=== PATIENT | male | born 1990 | race African-American/Black ===

== ENCOUNTER 2023-10-17 08:28 | Emergency (ER) | payer MEDICAID, OTHER ==
[~2023-10-17] VITALS: Ht 167.6 cm; Wt 75.0 kg
[~2023-10-17 08:28] MED LIST: ZOLOFT
[2023-10-17 08:32] VITALS: BP 128/83; PULSE 76; RESP 18; TEMP 98.2
[2023-10-17] MEDS: IBUPROFEN 600 MG TABLET PO ONE ×2 (10:19→10:20)
[2023-10-17] MEDS ORDERED: IBUP-1492 PO (10:57)
== END 2023-10-17 11:31 | disposition home or self-care (01) ==
LOC: EMS 08:28
DX: R07.89 Other chest pain (principal); R05.9 Cough, unspecified; J45.909 Unspecified asthma, uncomplicated; F12.90 Cannabis use, unspecified, uncomplicated
CPT/HCPCS: 71100; 99283

== ENCOUNTER 2023-12-08 08:07 | Emergency (ER) | payer OTHER ==
[~2023-12-08] VITALS: Ht 167.6 cm; Wt 75.0 kg
[~2023-12-08 08:07] MED LIST changes: +IBUP-1492 PO; -ZOLOFT
[2023-12-08 08:11] VITALS: BP 135/78; PULSE 85; RESP 18; TEMP 97.9
[2023-12-08] MEDS ORDERED: METH-659 PO (09:18)
== END 2023-12-08 09:31 | disposition home or self-care (01) ==
LOC: EMS 08:09
DX: T30.0 Burn of unspecified body region, unspecified degree (principal); M62.830 Muscle spasm of back; J45.909 Unspecified asthma, uncomplicated; F12.90 Cannabis use, unspecified, uncomplicated; R73.03 Prediabetes
CPT/HCPCS: 99283; Z7502

== ENCOUNTER 2024-06-24 12:06 | Emergency (ER) | payer OTHER ==
[~2024-06-24] VITALS: Ht 167.6 cm; Wt 70.0 kg
[~2024-06-24 12:06] MED LIST changes: +METH-659 PO
[2024-06-24 12:18] VITALS: TEMP 98.1
[2024-06-24 14:49] VITALS: BP 122/65; PULSE 88; RESP 18; O2SAT 97
== END 2024-06-24 14:57 | disposition home or self-care (01) ==
LOC: EMS 12:06
DX: Z20.1 Contact with and (suspected) exposure to tuberculosis (principal); J45.909 Unspecified asthma, uncomplicated; F12.90 Cannabis use, unspecified, uncomplicated
CPT/HCPCS: 71045; 99283